=== PATIENT | male | born 1940 | race Caucasian/White ===

== ENCOUNTER 2023-06-18 08:46 | Inpatient (IN) | payer MEDICARE ==
[2023-06-18] MEDS ORDERED: SODIUM CHLORIDE 0.9% 500 ML 500 ML IV ONE (08:57)
--- NOTE | 2023-06-18 09:01 | ED ---
GI Bleed HPI - General Stated complaint: Seizure Time Seen by Provider: 06/18/23 08:55 Source: patient, family, RN notes reviewed, old records reviewed - History of Present Illness Initial comments: This is an 83-year-old male who presents emergency Department for new onset seizure. Patient's gives all the history. Patient's states she woke up to the her shaking and grimacing and groaning and it lasted for about 2 minutes she states it look like a seizure to her. Patient states after that he was in coherent for about 5 minutes and he slowly came around. Currently she states she is at his baseline. She also stated that he bit his tongue and there was blood coming out of his mouth. Patient currently states he just feels tired but other night he has no complaints. Patient does not have a seizure history. Patient does not use any illegal drugs or drink. Patient has not had any recent injury or trauma. Patient is not on any blood thinners. - Related Data Allergies Allergy/AdvReac Type Severity Reaction Status Date / Time No Known Allergies Allergy Verified 06/18/23 09:00 Review of Systems ROS Statement: Those systems with pertinent positive or pertinent negative responses have been documented in the HPI. ROS Other: All systems not noted in ROS Statement are negative. General Exam - General Exam Comments Initial Comments: GENERAL: Patient is well-developed and well-nourished. Patient is nontoxic and well- hydrated and is in mild distress. ENT: Neck is soft and supple. No significant lymphadenopathy is noted. Oropharynx is clear. Moist mucous membranes. Neck has full range of motion without e liciting any pain. Tongue has some abrasions on the right side and at the tip of the tongue no obvious laceration EYES: The sclera were anicteric and conjunctiva were pink and moist. Extraocular mo vements were intact and pupils were equal round and reactive to light. Eyelids were unremarkable. PULMONARY: Unlabored respirations. Good breath sounds bilaterally. No audible rales rhonchi or wheezing was noted. CARDIOVASCULAR: There is a regular rate and rhythm without any murmurs gallops or rubs. ABDOMEN: Soft and nontender with normal bowel sounds. SKIN: Skin is clear with no lesions or rashes and otherwise unremarkable. NEUROLOGIC: Patient is alert and oriented x3. Cranial nerves II through XII are grossly intact. Motor and sensory are also intact. Normal speech, volume and content. Symmetrical smile. MUSCULOSKELETAL: Normal extremities with adequate strength and full range of motion. LYMPHATICS: No significant lymphadenopathy is noted PSYCHIATRIC: Normal psychiatric evaluation. Course Vital Signs 06/18/23 06/18/23 06/18/23 08:53 09:00 10:25 Temperature 98.7 F Pulse Rate 90 84 120 H Respiratory 18 18 28 H Rate Blood Pressure 158/116 167/84 222/108 O2 Sat by Pulse 95 97 91 L Oximetry 06/18/23 06/18/23 10:30 11:11 Temperature Pulse Rate 112 H 106 H Respiratory 20 Rate Blood Pressure 198/92 146/78 O2 Sat by Pulse 98 97 Oximetry Medical Decision Making - Medical Decision Making EKG shows a sinus rhythm at 92 bpm SD interval is 212 QRS is 129 QT interval 33 QTC is 433. Patient's EKG shows no ST segment elevation or depression. Was pt. sent in by a medical professional or institution (, PA, AIRCRAFT ELECT[employer]ICAL SYSTEMS SPECIALIST, urgent care, hospital, or group home...) When possible be specific @ -No Did you speak to anyone other than the patient for history (EMS, parent, family, police, friend...)? What history was obtained from this source @ -EMS gave us most of the history Did you review nursing and triage notes (agree or disagree)? Why? @ -I reviewed and agree with nursing and triage notes Were old charts reviewed (outside hosp., previous admission, EMS record, old EKG, old radiological studies, urgent care reports/EKG's, group home records)? Report findings @ -I reviewed old charts and old lab work on this patient Differential Diagnosis (chest pain, altered mental status, abdominal pain women, abdominal pain men, vaginal bleeding, weakness, fever, dyspnea, syncope, headache, dizziness, GI bleed, back pain, seizure, CVA, palpatations, mental health, musculoskeletal)? @ -Differential Seizure: Recurrent seizure disorder, febrile seizure, alcohol withdrawal, stimulants, meningitis, encephalitis, intercranial hemorrhage, intracranial tumor, stroke, eclampsia, thyrotoxicosis, hypocalcemia, hyponatremia, hypernatremia, hypomagnesemia, psychogenic, this is not meant to be an all-inclusive list. EKG interpreted by me (3pts min.). @ -As above X-rays interpreted by me (1pt min.). @ -Chest x-ray showed no acute abnormality CT interpreted by me (1pt min.). 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 min.). @ -None done What testing was considered but not performed or refused? (CT, X-rays, U/S, labs)? Why? @ -None What meds were considered but not given or refused? Why? @ -None Did you discuss the management of the patient with other professionals (professionals i.e. , PA, AIRCRAFT [employer] SPECIALIST, lab, RT, psych nurse, dialysis social worker, jumpbasting facing baster, teacher, correction officer city or county jail, major case detective)? Give summary @ -I spoke with the patient [facility] say agreed to admit the patient admitted the patient. I also spoke with Dr. Dey and he agreed to see the patient. Was smoking cessation discussed for >3mins.? @ -No Was critical care preformed (if so, how long)? @ -No Were there social determinants of health that impacted care today? How? (Homelessness, low income, unemployed, alcoholism, drug addiction, transportat ion, low edu. Level, literacy, decrease access to med. care, longterm, rehab)? @ -No Was there de-escalation of care discussed even if they declined (Discuss DNR or withdrawal of care, Hospice)? DNR status @ -No What co-morbidities impacted this encounter? (DM, HTN, Smoking, COPD, CAD, Cancer, CVA, ARF, Chemo, Hep., AIDS, mental health diagnosis, sleep apnea, morbid obesity)? @ -None Was patient admitted / discharged? Hospital course, mention meds given and route, prescriptions, significant lab abnormalities, going to OR and other pertinent info. @ -Lab work showed no acute abnormality. Patient had a second seizure emergency department he did receive 1 mg of Ativan. Patient's CAT scan showed no acute abnormality she was a remote basal ganglia lacunar infarct. I spoke with the surgeon hospice will accept the admission and consulted Dr. Panda spoke with him and he will see the patient. Undiagnosed new problem with uncertain prognosis? @ -No Drug Therapy requiring intensive monitoring for toxicity (Heparin, Nitro, Insulin, Cardizem)? @ -No Were any procedures done? @ -No Diagnosis/symptom? @ -New onset seizure Acute, or Chronic, or Acute on Chronic? @ -Acute Uncomplicated (without systemic symptoms) or Complicated (systemic symptoms)? @ -Complicated Side effects of treatment? @ -No Exacerbation, Progression, or Severe Exacerbation? @ -No Poses a threat to life or bodily function? How? (Chest pain, USA, CT, pneumonia, PE, COPD, DKA, ARF, appy, cholecystitis, CVA, Diverticulitis, Homicidal, Suicidal, threat to staff... and all critical care pts) @ -No - Lab Data Result diagrams: 06/18/23 09:08 06/18/23 09:08 Lab Results 06/18/23 06/18/23 06/18/23 Range/Units 09:08 09:08 09:08 WBC 6.6 (3.8-10.6) k/uL RBC 4.55 (4.30-5.90) m/uL Hgb 13.5 (13.0-17.5) gm/dL Hct 40.7 (39.0-53.0) % MCV 89.6 (80.0-100.0) fL MCH 29.6 (25.0-35.0) pg MCHC 33.1 (31.0-37.0) g/dL RDW 13.7 (11.5-15.5) % Plt Count 132 L (150-450) k/uL MPV 8.9 Neutrophils % 80 % Lymphocytes % 8 % Monocytes % 6 % Eosinophils % 6 % Basophils % 0 % Neutrophils # 5.3 (1.3-7.7) k/uL Lymphocytes # 0.5 L (1.0-4.8) k/uL Monocytes # 0.4 (0-1.0) k/uL Eosinophils # 0.4 (0-0.7) k/uL Basophils # 0.0 (0-0.2) k/uL PT 11.2 (9.0-12.0) sec INR 1.1 (<1.2) APTT 21.9 L (22.0-30.0) sec Sodium 138 (137-145) mmol/L Potassium 4.2 (3.5-5.1) mmol/L Chloride 105 (98-107) mmol/L Carbon Dioxide 24 (22-30) mmol/L Anion Gap 9 mmol/L BUN 48 H (9-20) mg/dL Creatinine 1.93 H (0.66-1.25) mg/dL Est GFR (CKD-EPI)AfAm 36 (>60 ml/min/1.73 sqM) Est GFR (CKD-EPI)NonAf 31 (>60 ml/min/1.73 sqM) Glucose 218 H (74-99) mg/dL POC Glucose (mg/dL) (70-110) mg/dL POC Glu Ski Top Trimmer ID Calcium 9.0 (8.4-10.2) mg/dL Total Bilirubin 0.4 (0.2-1.3) mg/dL AST 24 (17-59) U/L ALT 16 (4-49) U/L Alkaline Phosphatase 57 (38-126) U/L Troponin I (0.000-0.034) ng/mL Total Protein 6.7 (6.3-8.2) g/dL Albumin 4.2 (3.5-5.0) g/dL 06/18/23 06/18/23 Range/Units 09:08 10:37 WBC (3.8-10.6) k/uL RBC (4.30-5.90) m/uL Hgb (13.0-17.5) gm/dL Hct (39.0-53.0) % MCV (80.0-100.0) fL MCH (25.0-35.0) pg MCHC (31.0-37.0) g/dL RDW (11.5-15.5) % Plt Count (150-450) k/uL MPV Neutrophils % % Lymphocytes % % Monocytes % % Eosinophils % % Basophils % % Neutrophils # (1.3-7.7) k/uL Lymphocytes # (1.0-4.8) k/uL Monocytes # (0-1.0) k/uL Eosinophils # (0-0.7) k/uL Basophils # (0-0.2) k/uL PT (9.0-12.0) sec INR (<1.2) APTT (22.0-30.0) sec Sodium (137-145) mmol/L Potassium (3.5-5.1) mmol/L Chloride (98-107) mmol/L Carbon Dioxide (22-30) mmol/L Anion Gap mmol/L BUN (9-20) mg/dL Creatinine (0.66-1.25) mg/dL Est GFR (CKD-EPI)AfAm (>60 ml/min/1.73 sqM) Est GFR (CKD-EPI)NonAf (>60 ml/min/1.73 sqM) Glucose (74-99) mg/dL POC Glucose (mg/dL) 204 H (70-110) mg/dL POC Glu Ski Top Trimmer ID Desiree Brooks Calcium (8.4-10.2) mg/dL Total Bilirubin (0.2-1.3) mg/dL AST (17-59) U/L ALT (4-49) U/L Alkaline Phosphatase (38-126) U/L Troponin I <0.012 (0.000-0.034) ng/mL Total Protein (6.3-8.2) g/dL Albumin (3.5-5.0) g/dL Disposition Clinical Impression: New onset seizure Disposition: ADMITTED IP TO THIS [facility] Instructions (If sedation given, give patient instructions): Seizure/Epilepsy Discharge Instructions & Follow-Up Referrals: Nonstaff,Physician [REFERRING] - 1-2 days Time of Disposition: 12:16
[2023-06-18 09:30] LABS: Basophils % (A) 0 %; Eosinophils # (A) 0.4 k/uL (0-0.7); Eosinophils % (A) 6 %; HCT 40.7 % (39.0-53.0); HGB 13.5 gm/dL (13.0-17.5); Lymphocytes # (A) 0.5 k/uL (1.0-4.8); Lymphocytes % (A) 8 %; MCH 29.6 pg (25.0-35.0); MCHC 33.1 g/dL (31.0-37.0); MCV 89.6 fL (80.0-100.0); Mean Platelet Volume 8.9; Monocytes # (A) 0.4 k/uL (0-1.0); Monocytes % (A) 6 %; Neutrophils # (A) 5.3 k/uL (1.3-7.7); Neutrophils % (A) 80 %; Platelet Count 132 k/uL (150-450); RBC 4.55 m/uL (4.30-5.90); RDW 13.7 % (11.5-15.5); WBC 6.6 k/uL (3.8-10.6)
--- NOTE | 2023-06-18 09:34 | CT ---
EXAMINATION TYPE: CT brain wo con CT DLP: 1159.3 mGycm, Automated exposure control for dose reduction was used. DATE OF EXAM: 06/18/2023 9:27 AM COMPARISON: None. CLINICAL INDICATION:Male, 83 years old with history of Altered mental status, AMS TECHNIQUE: Brain: Multiple axial CT images of the brain were obtained without IV contrast. Coronal and sagittal reformats reviewed. FINDINGS: Brain: Extra-axial spaces: No abnormal extra-axial fluid collections. Ventricular system: Within normal limits Cerebral parenchyma: Cerebral atrophy. No acute intraparenchymal hemorrhage or mass effect. The roblero -white junction is well differentiated. Remote appearing left basal ganglia lacunar injury. Scattered hypoattenuating areas are seen within the periventricular and subcortical white matter. Cerebellum: Unremarkable. Mass effect: No evidence of midline shift. Intracranial vasculature: Atherosclerotic calcifications of the intracranial vessels. Soft tissues: Normal. Calvarium/osseous structures: No depressed skull fracture. Paranasal sinuses and mastoid air cells: Mild scattered paranasal sinus disease. Visualized orbits: Bilateral aphakia. Bilateral scleral calcifications. IMPRESSION: 1. No acute intracranial process. 2. 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
--- NOTE | 2023-06-18 09:40 | XR ---
EXAMINATION TYPE: XR chest 2V DATE OF EXAM: 06/18/2023 9:36 AM COMPARISON: None TECHNIQUE: XR chest 2V Frontal and lateral views of the chest. CLINICAL INDICATION:Male, 83 years old with history of altered mental status; FINDINGS: Patient is rotated which limits evaluation. Lungs/Pleura: There is no evidence of pleural effusion, focal consolidation, or pneumothorax. Mild i nterstitial prominence. Heart/mediastinum: Cardiomediastinal silhouette is unremarkable. Atherosclerotic calcifications are seen in the aorta. Musculoskeletal: Multiple level degenerative disc disease changes seen throughout the spine. Bilatera l shoulder arthropathy. IMPRESSION: Mild interstitial prominence. This could reflect chronic parenchyma changes versus pulmonary vascular congestion.
[2023-06-18 09:45] LABS: ALT 16 U/L (4-49); AST 24 U/L (17-59); African American GFR (CKD) 36 (>60 ml/min/1.73 sqM); Albumin 4.2 g/dL (3.5-5.0); Alkaline Phosphatase 57 U/L (38-126); Anion Gap 9 mmol/L; Blood Urea Nitrogen 48 mg/dL (9-20); Carbon Dioxide 24 mmol/L (22-30); Chloride 105 mmol/L (98-107); Glucose 218 mg/dL (74-99); Non-African American GFR(CKD) 31 (>60 ml/min/1.73 sqM); Potassium 4.2 mmol/L (3.5-5.1); Sodium 138 mmol/L (137-145); Total Bilirubin 0.4 mg/dL (0.2-1.3); Total Protein 6.7 g/dL (6.3-8.2)
[2023-06-18 09:48] LABS: INR 1.1 (<1.2); Partial Thromboplastin Time 21.9 sec (22.0-30.0); Prothrombin Time 11.2 sec (9.0-12.0)
[2023-06-18] MEDS ORDERED: LORazepam 2 MG/ML INJ IV STA (10:26)
[2023-06-18] MEDS ORDERED: Acetaminophen-Codeine 300-30mg TAB PO PRN (10:37)
[2023-06-18] MEDS ORDERED: LORazepam 2 MG/ML INJ IV PRN (10:37)
[2023-06-18] MEDS ORDERED: ONDANSETRON 4 MG/2 ML VIAL IVP PRN (10:37)
[2023-06-18] MEDS ORDERED: ACETAMINOPHEN TAB 325 MG TAB PO PRN (10:37)
[2023-06-18] MEDS ORDERED: NALOXONE 0.4 MG/ML 1 ML VIAL IV PRN (10:37)
[2023-06-18 10:40] LABS: Glucose,Whole Blood 204 mg/dL (70-110)
[2023-06-18] MEDS ORDERED: ALPRAZolam 0.25 MG TAB PO PRN (15:35)
--- NOTE | 2023-06-18 15:44 | P.HPIM ---
History of Present Illness H&P Date: 06/18/23 * 83-year-old gentleman with past medical history significant for diabetes mellitus, presented to the emergency department with new onset seizure * Patient was in usual state of health when he was noted to have abnormal jerky movement of his body earlier today. Patient was brought to the emergency if we added another episode of seizure. Patient does not have any previous history of seizure * CT head obtained in ER showed remote left basal ganglion lacunar injury. No acute intracranial process was noted * Workup initiated in ER included a CBC which was essentially normal except for platelet count of 132. Serum chemistry showed sodium of 138 potassium of 4.2 BUN of 40 1.93 Glucose of 218 * Patient was evaluated and room 472 with family at bedside she continues to remain disoriented REVIEW OF SYSTEMS: Unable to obtain history secondary to PHYSICAL EXAMINATION: GENERAL: The patient is alert and oriented x 1, HEENT: Pupils are round and equally reacting to light. EOMI. CARDIOVASCULAR: S1 and S2 present. PULMONARY: Chest is clear to auscultation, no wheezing or crackles. ABDOMEN: Soft, nontender, nondistended, normoactive bowel sounds. No palpable organomegaly. MUSCULOSKELETAL: No joint swelling or deformity. EXTREMITIES: No cyanosis, clubbing, or pedal edema. NEUROLOGICAL: Exam limited secondary to mentation, patient moving both upper and lower extremities no facial droop noted . Past Medical History Past Medical History: Cancer, Diabetes Mellitus, Hypertension History of Any Multi-Drug Resistant Organisms: None Reported Past Surgical History: Prostate Surgery Past Psychological History: No Psychological Hx Reported Smoking Status: Former smoker Past Alcohol Use History: None Reported Past Drug Use History: None Reported - Past Family History Father Family Medical History: No Reported History Medications and Allergies Home Medications Medication Instructions Recorded Confirmed Type ALPRAZolam [Xanax] 0.25 mg PO DAILY PRN 06/18/23 06/18/23 History Amlodipine Besylate/Valsartan 1 tab PO DAILY 06/18/23 06/18/23 History [Amlodipine-Valsartan 10-320 mg] Atorvastatin Calcium [Lipitor] 40 mg PO HS 06/18/23 06/18/23 History Chlorthalidone 12.5 mg PO DAILY 06/18/23 06/18/23 History Fenofibrate Nanocrystallized 145 mg PO DAILY 06/18/23 06/18/23 History [Tricor] Isosorbide Mononitrate ER [Imdur] 30 mg PO DAILY 06/18/23 06/18/23 History Levothyroxine Sodium [Synthroid] 125 mcg PO DAILY 06/18/23 06/18/23 History Pantoprazole Sodium [Protonix] 20 mg PO DAILY 06/18/23 06/18/23 History Sertraline [Zoloft] 200 mg PO DAILY 06/18/23 06/18/23 History metFORMIN HCL [Glucophage] 500 mg PO DAILY 06/18/23 06/18/23 History Allergies Allergy/AdvReac Type Severity Reaction Status Date / Time No Known Allergies Allergy Verified 06/18/23 13:58 Physical Exam Vitals: Vital Signs Temp Pulse Pulse Resp BP BP Pulse Ox 06/18/23 13:40 98.0 F 93 18 166/82 95 06/18/23 13:00 79 24 149/85 97 06/18/23 11:11 106 H 20 146/78 97 06/18/23 10:30 112 H 198/92 98 06/18/23 10:25 120 H 28 H 222/108 91 L 06/18/23 09:00 84 18 167/84 97 06/18/23 08:53 98.7 F 90 18 158/116 95 Intake and Output 06/18/23 06/18/23 06/18/23 06:59 14:59 22:59 Other: Weight 70.307 kg Results CBC & Chem 7: 06/18/23 09:08 06/18/23 09:08 Labs: Abnormal Lab Results - Last 24 Hours (Table) 06/18/23 06/18/23 06/18/23 Range/Units 09:08 09:08 09:08 Plt Count 132 L (150-450) k/uL Lymphocytes # 0.5 L (1.0-4.8) k/uL APTT 21.9 L (22.0-30.0) sec BUN 48 H (9-20) mg/dL Creatinine 1.93 H (0.66-1.25) mg/dL Glucose 218 H (74-99) mg/dL POC Glucose (mg/dL) (70-110) mg/dL 06/18/23 Range/Units 10:37 Plt Count (150-450) k/uL Lymphocytes # (1.0-4.8) k/uL APTT (22.0-30.0) sec BUN (9-20) mg/dL Creatinine (0.66-1.25) mg/dL Glucose (74-99) mg/dL POC Glucose (mg/dL) 204 H (70-110) mg/dL Thrombosis Risk Factor Assmnt - Choose All That Apply Other Risk Factors: Yes Each Risk Factor Represents 3 Points: Age 75 years or older Thrombosis Risk Factor Assessment Total Risk Factor Score: 3 Thrombosis Risk Factor Assessment Level: Moderate Risk Assessment and Plan Assessment: Assessment and plan * New onset seizure * Diabetes mellitus type 2 * Hypertension * Dyslipidemia * History of depression * Consult obtained from neurology, CT head negative for acute intracranial process. Continue every 4 hours neuro check * As needed Ativan ordered for seizure * In regards to diabetes mellitus continue Accu-Cheks, correctional insulin ordered hold metformin * In regards to history of hypothyroidism continue Synthroid follow-up on TSH * Regards to history of depression continue patient on Synthyroid * Post status is full code
[2023-06-18 16:32] LABS: Glucose,Whole Blood 123 mg/dL (70-110)
[2023-06-18] MEDS: INSULIN ASPART (NovoLOG) 100 UNIT/ML VIAL SQ SCH ×2 (16:32→22:32)
[2023-06-18] MEDS ORDERED: levETIRAcetam IV 500 MG/5 ML VIAL IVP STA (18:06)
[2023-06-18] MEDS: ISOSORBIDE MONONITRATE ER 30 MG TAB.ER.24H PO SCH (18:28)
--- NOTE | 2023-06-18 19:21 | P.CNNES ---
History of Present Illness Consult date: 06/18/23 Requesting physician: Joya Christie Reason for Consult: New onset seizure History of Present Illness: Patient is a 83-year-old right-handed male, otherwise healthy, was brought to the hospital by ambulance at 8:46 AM for new onset seizure. Patient's was also present, who provided with a history. Patient apparently went to sleep last night in usual state of health. At 7:15 AM patient's woke up because patient was making some noises. She then witnessed grand mal seizure in which he bit his tongue, and lost control of urine. She called 911 and patient was brought to the hospital. Patient's mentions that he was postictal for about an hour after the seizure. While in the ER at 10:20 AM he had another seizure, again in which he bit his tongue and lost control of urine. He was "incoherent" for about 3-4 hours after this second seizure. He is now slightly getting better. Patient never had any history of seizure. He is otherwise healthy, see his primary physician regularly, last time seen 2 weeks ago. He has no history of dementia, does not use any assistive device, except sometimes uses cane been going for long distances. No falls. Patient denies any history of concussions, childhood seizures, or any family history of epilepsy. No previous history of meningitis encephalitis. Vital signs on arrival blood pressure 158/116, pulse rate 90, temperature 98.7. His blood pressure did go up to 222/108, perhaps during the seizure. Blood tests showed normal Chem-7, PT/PTT, normal electrolytes, BUN 48, creatinine 1.93, hepatic panel is normal, troponin normal, ammonia is normal 19. Urine drug screen positive for benzodiazepine and marijuana. CT head showed no acute intracranial process. Remote left basal ganglia lacune or injury along with nonspecific white matter changes, likely secondary to chronic microangiopathy. I personally reviewed CT head, do not find any significant basal ganglionic remote injury. No acute process. Chest x-ray showed mild interstitial promine nce. This could reflect chronic parenchyma changes versus pulmonary vascular congestion. EMS flow sheet not available in the chart. Patient at present is improved, but frequently gets agitated, and wants to go climb out of the bed, wants to go to the bathroom or wants to go home. Patient's believes that he is still slightly confused and has to be frequently reoriented. Patient was complaining of headache in the ER but not anymore. Patient denies any history of tobacco or alcohol use. Patient does use marijuana gummies, or smokes marijuana. Denies any using new brand, gets it from medical marijuana. He was diagnosed with diabetes 6 months ago with A1c 7.1. Started on metformin. He has hypertension and hyperlipidemia both of which are controlled. Patient does take Xanax 0.25 mg, but very sporadically, only about twice a month. He does not take it regularly. Review of Systems Constitutional: Denies chills, Denies fever Eyes: denies blurred vision, denies discharge, denies pain Ears: right: earache, bilateral: decreased hearing, deny: tinnitus Ears, nose, mouth and throat: Denies headache, Denies sore throat Cardiovascular: Denies chest pain, Denies shortness of breath Respiratory: Reports cough, Reports excessive sputum Gastrointestinal: Reports abdominal pain (This am), Reports vomiting (ER), Denies diarrhea, Denies nausea Musculoskeletal: Denies low back pain, Denies myalgias, Denies neck pain Integumentary: Denies pruritus, Denies rash Neurological: Reports as per HPI Psychiatric: Denies anxiety, Denies depression, Denies memory loss Endocrine: Denies fatigue, Denies weight change Hematologic/Lymphatic: Reports easy bruising, Denies easy bleeding Past Medical History Past Medical History: Cancer, Diabetes Mellitus, Hypertension History of Any Multi-Drug Resistant Organisms: None Reported Past Surgical History: Prostate Surgery Past Psychological History: No Psychological Hx Reported Smoking Status: Former smoker Past Alcohol Use History: None Reported Past Drug Use History: None Reported - Past Family History Father Family Medical History: No Reported History Medications and Allergies Home Medications Medication Instructions Recorded Confirmed Type ALPRAZolam [Xanax] 0.25 mg PO DAILY PRN 06/18/23 06/18/23 History Amlodipine Besylate/Valsartan 1 tab PO DAILY 06/18/23 06/18/23 History [Amlodipine-Valsartan 10-320 mg] Atorvastatin Calcium [Lipitor] 40 mg PO HS 06/18/23 06/18/23 History Chlorthalidone 12.5 mg PO DAILY 06/18/23 06/18/23 History Fenofibrate Nanocrystallized 145 mg PO DAILY 06/18/23 06/18/23 History [Tricor] Isosorbide Mononitrate ER [Imdur] 30 mg PO DAILY 06/18/23 06/18/23 History Levothyroxine Sodium [Synthroid] 125 mcg PO DAILY 06/18/23 06/18/23 History Pantoprazole Sodium [Protonix] 20 mg PO DAILY 06/18/23 06/18/23 History Sertraline [Zoloft] 200 mg PO DAILY 06/18/23 06/18/23 History metFORMIN HCL [Glucophage] 500 mg PO DAILY 06/18/23 06/18/23 History levETIRAcetam [Keppra] 750 mg PO Q12HR 30 Days #180 tab 06/21/23 Rx Allergies Allergy/AdvReac Type Severity Reaction Status Date / Time No Known Allergies Allergy Verified 06/18/23 13:58 Physical Examination - Vital Signs Vital Signs: Vital Signs Temp Pulse Pulse Resp BP BP Pulse Ox 06/18/23 13:40 98.0 F 93 18 166/82 95 06/18/23 13:00 79 24 149/85 97 06/18/23 11:11 106 H 20 146/78 97 06/18/23 10:30 112 H 198/92 98 06/18/23 10:25 120 H 28 H 222/108 91 L 06/18/23 09:00 84 18 167/84 97 06/18/23 08:53 98.7 F 90 18 158/116 95 Intake and Output 06/18/23 06/18/23 06/18/23 06:59 14:59 22:59 Other: # Voids 1 Weight 70.307 kg Patient is an elderly male, who appears somewhat encephalopathic, but is getting better. Patient is slightly encephalopathic, but then becomes alert awake oriented to time place and person. He knows it is May and the year is 23 and that he is in the hospital in [facility]. He he knows that he lives in [facility] and name of the current president. Speech and language functions are normal. Patient can name and repeat very well. No aphasia, but patient has slurring because of significant tongue bite bilaterally. Attention, concentration is slightly impaired and fund of knowledge is adequate. On cranial nerve examination, pupils are equal, round and reacting to light, visual hudson are full on confrontation, with no neglect on double simultaneous stimulation. Extraocular muscles are intact with no nystagmus. Face is symmetric, tongue protrudes to the midline. Palatal elevation and sensation normal, hearing is mild to moderately decreased and shoulder shrug normal, facial sensation normal. Patient has evidence of significant tongue bite abhinav bilaterally. On muscle strength testing, there is no pronator drift and the strength is normal in arms and legs distally and proximally. Deep tendon reflexes are (right/left) biceps 2/1, brachioradialis trace/trace, knees 0/0, ankles 0/0, and plantars are flat bilaterally. Sensory to touch is equal with no neglect on double simultaneous stimulation. Cerebellar function showed no ataxia for [id number] testing. No dysdiadochokinesia. Tone and bulk of muscles normal. Gait deferred.. On general examination, there is no carotid bruit or murmur, S1-S2 audible. Chest is clear on consultation. Abdomen is soft nontender. No organomegaly, bowel sounds present. Peripheral pulses are present. No edema. Results - Laboratory Findings CBC and BMP: 06/21/23 07:16 06/21/23 07:16 Abnormal Lab Findings: Abnormal Labs 06/18/23 06/18/23 06/18/23 09:08 09:08 09:08 Plt Count 132 L Lymphocytes # 0.5 L APTT 21.9 L BUN 48 H Creatinine 1.93 H Glucose 218 H POC Glucose (mg/dL) 06/18/23 06/18/23 10:37 16:31 Plt Count Lymphocytes # APTT BUN Creatinine Glucose POC Glucose (mg/dL) 204 H 123 H Assessment and Plan Assessment: * New onset grand mal seizure 2 (prior to arrival to the ER, and once in the ER), unclear etiology. No obvious provoking factor identified. Patient does not take any medications that could provoke seizure. Patient does have prescription of Xanax 0.25 mg, but he takes it no more than twice a month. No evidence of benzodiazepine withdrawal. * Hypertension * Diabetes * Marijuana use Plan: * Patient has presented with new onset seizure of unclear etiology. Although the oral temperature recorded was normal, but when checked axillary, was 100.0. Need to rule out encephalitis. * Patient will be started on Keppra 1000 mg stat loading dose, followed by Kepp ra 750 mg IV twice a day. * Stat EEG * Stat MRI of the brain with and without contrast. * Patient may need lumbar puncture to rule out encephalitis. * We will empirically start acyclovir 10 mg/kg every 8 hours, (to be adjusted for patient's renal functions as per pharmacist). * Urine drug screen * Patient informed of [place] state law of no driving unless seizure free for 6 months, climbing ladders, operating dangerous machinery or unsupervised swimming. * Discussed with patient's family in detail. * Neurology will follow clinically. Thank you for the consult. Time with Patient: Greater than 30
[2023-06-18 21:09] LABS: Glucose,Whole Blood 106 mg/dL (70-110)
[2023-06-18] MEDS: ATORVASTATIN 40 MG TAB PO SCH (21:11)
[2023-06-18] MEDS: ACYCLOVIR SODIUM 700 MG in SODIUM CHLORIDE 0.9% 100 ML IVPB SCH (21:11)
[2023-06-18] MEDS: levETIRAcetam IV 500 MG/5 ML VIAL IVP SCH (21:11)
[2023-06-18] MEDS: LORazepam 2 MG/ML INJ IV PRN (21:51)
[2023-06-18 23:49] LABS: Amphetamine Screen,Urine Not Detected (NotDetected); Barbiturate Screen,Urine Not Detected (NotDetected); Benzodiazepines Screen,Urine Detected (NotDetected); Cocaine Screen,Urine Not Detected (NotDetected); Methadone Screen, Urine Not Detected (NotDetected); Opiate Screen,Urine Not Detected (NotDetected); Oxycodone Screen, Urine Not Detected (NotDetected); Phencyclidine Screen,Urine Not Detected (NotDetected); Tricyclic Antidepressant,Urine Not Detected (NotDetected); Urn Cannabinoid Scrn Detected (NotDetected)
[2023-06-19 06:01] LABS: Glucose,Whole Blood 120 mg/dL (70-110)
[2023-06-19] MEDS: INSULIN ASPART (NovoLOG) 100 UNIT/ML VIAL SQ SCH ×4 (06:12→21:36)
[2023-06-19 08:16] LABS: African American GFR (CKD) 41 (>60 ml/min/1.73 sqM); Anion Gap 6 mmol/L; Blood Urea Nitrogen 34 mg/dL (9-20); Calcium 9.1 mg/dL (8.4-10.2); Carbon Dioxide 25 mmol/L (22-30); Chloride 105 mmol/L (98-107); Glucose 124 mg/dL (74-99); Non-African American GFR(CKD) 35 (>60 ml/min/1.73 sqM); Potassium 4.1 mmol/L (3.5-5.1); Sodium 136 mmol/L (137-145)
[2023-06-19 08:31] LABS: Basophils % (A) 0 %; Eosinophils # (A) 0.4 k/uL (0-0.7); Eosinophils % (A) 4 %; HCT 40.3 % (39.0-53.0); HGB 13.4 gm/dL (13.0-17.5); Lymphocytes # (A) 0.8 k/uL (1.0-4.8); Lymphocytes % (A) 8 %; MCH 29.6 pg (25.0-35.0); MCHC 33.2 g/dL (31.0-37.0); MCV 89.1 fL (80.0-100.0); Monocytes # (A) 0.8 k/uL (0-1.0); Monocytes % (A) 8 %; Neutrophils # (A) 8.1 k/uL (1.3-7.7); Neutrophils % (A) 80 %; Platelet Count 162 k/uL (150-450); RBC 4.53 m/uL (4.30-5.90); RDW 13.9 % (11.5-15.5); WBC 10.1 k/uL (3.8-10.6)
[2023-06-19] MEDS: ACYCLOVIR SODIUM 700 MG in SODIUM CHLORIDE 0.9% 100 ML IVPB SCH ×2 (08:35→20:08)
[2023-06-19] MEDS: levETIRAcetam IV 500 MG/5 ML VIAL IVP SCH ×2 (08:35→20:08)
[2023-06-19] MEDS: amLODIPine 10 MG TAB PO SCH (08:36)
[2023-06-19] MEDS: FENOFIBRATE 54 MG TAB PO SCH (08:36)
[2023-06-19] MEDS: PANTOPRAZOLE 40 MG TABLET PO SCH (08:36)
[2023-06-19] MEDS: VALSARTAN 160 MG TAB PO SCH (08:36)
[2023-06-19] MEDS: LEVOTHYROXINE 125 MCG TAB PO SCH (08:36)
[2023-06-19] MEDS: SERTRALINE 100 MG TAB PO SCH (08:36)
[2023-06-19] MEDS: ISOSORBIDE MONONITRATE ER 30 MG TAB.ER.24H PO SCH (08:36)
[2023-06-19] MEDS ORDERED: LIDOCAINE 1% INJ 10MG/ML (20 ML MDV) SQ ONE (10:13)
[2023-06-19 11:42] LABS: Glucose,Whole Blood 164 mg/dL (70-110)
--- NOTE | 2023-06-19 12:59 | P.PN ---
Subjective Progress Note Date: 06/19/23 * 83-year-old gentleman with past medical history significant for diabetes mellitus, presented to the emergency department with new onset seizure * Patient was in usual state of health when he was noted to have abnormal jerky movement of his body earlier today. Patient was brought to the emergency if we added another episode of seizure. Patient does not have any previous history of seizure * CT head obtained in ER showed remote left basal ganglion lacunar injury. No acute intracranial process was noted * Workup initiated in ER included a CBC which was essentially normal except for platelet count of 132. Serum chemistry showed sodium of 138 potassium of 4.2 BUN of 40 1.93 Glucose of 218 * Consultation obtained from neurology 06/19/2023 : Patient seen and evaluated bedside. Patient accompanied with and son. At this time patient is alert and oriented 3. Mentation has improved significantly. Appreciate neurology input. MRI brain pending Objective - Vital Signs Vital signs: Vital Signs Temp 98.4 F 06/19/23 07:49 Pulse 66 06/19/23 07:49 Resp 19 06/19/23 07:49 BP 135/67 06/19/23 07:49 Pulse Ox 98 06/19/23 07:49 FiO2 Intake & Output 06/18/23 06/19/23 06/19/23 18:59 06:59 18:59 Intake Total 340 Balance 340 Weight 70.307 kg Intake: Intake, IV Titration 100 Amount Acyclovir Sodium 700 mg 100 In Sodium Chloride 0.9% 100 ml @ 100 mls/hr IVPB Q12HR [facility] Rx#:[id number] Oral 240 Other: Voiding Method Urinal Urinal # Voids 1 2 - Exam PHYSICAL EXAMINATION: GENERAL: The patient is alert and oriented x3, not in any acute distress. Well developed, well nourished. HEENT: Pupils are round and equally reacting to light. EOMI. No scleral icterus. No conjunctival pallor. Normocephalic, atraumatic. No pharyngeal erythema. No thyromegaly. CARDIOVASCULAR: S1 and S2 present. No murmurs, rubs, or gallops. PULMONARY: Chest is clear to auscultation, no wheezing or crackles. ABDOMEN: Soft, nontender, nondistended, normoactive bowel sounds. No palpable organomegaly. MUSCULOSKELETAL: No joint swelling or deformity. EXTREMITIES: No cyanosis, clubbing, or pedal edema. NEUROLOGICAL: Gross neurological examination did not reveal any focal deficits. SKIN: No rashes. - Labs CBC & Chem 7: 06/19/23 07:02 06/19/23 07:02 Labs: Abnormal Lab Results - Last 24 Hours (Table) 06/18/23 06/18/23 06/19/23 Range/Units 16:31 21:30 05:59 Neutrophils # (1.3-7.7) k/uL Lymphocytes # (1.0-4.8) k/uL Sodium (137-145) mmol/L BUN (9-20) mg/dL Creatinine (0.66-1.25) mg/dL Glucose (74-99) mg/dL POC Glucose (mg/dL) 123 H 120 H (70-110) mg/dL U Benzodiazepines Scrn Detected H (NotDetected) U Marijuana (THC) Screen Detected H (NotDetected) 06/19/23 06/19/23 06/19/23 Range/Units 07:02 07:02 11:41 Neutrophils # 8.1 H (1.3-7.7) k/uL Lymphocytes # 0.8 L (1.0-4.8) k/uL Sodium 136 L (137-145) mmol/L BUN 34 H (9-20) mg/dL Creatinine 1.75 H (0.66-1.25) mg/dL Glucose 124 H (74-99) mg/dL POC Glucose (mg/dL) 164 H (70-110) mg/dL U Benzodiazepines Scrn (NotDetected) U Marijuana (THC) Screen (NotDetected) Assessment and Plan Assessment: Assessment and plan * New onset seizure * Diabetes mellitus type 2 * Hypertension * Dyslipidemia * History of depression * Consult obtained from neurology, CT head negative for acute intracranial process. Continue every 4 hours neuro check * As needed Ativan ordered for seizure, MRI brain ordered, EKG ordered * In regards to diabetes mellitus continue Accu-Cheks, correctional insulin ordered, hold metformin while inpatient * In regards to history of hypothyroidism continue Synthroid follow-up on TSH within normal limits * Regards to history of depression continue patient on Zoloft * Post status is full code
[2023-06-19 16:46] LABS: Glucose,Whole Blood 151 mg/dL (70-110)
[2023-06-19 16:48] LABS: Glucose,CSF 107 mg/dL (40-70); Total Protein,CSF 87 mg/dL (12-60)
[2023-06-19 17:48] LABS: Appearance,CSF Clear; CSF Tube Number 4; CSF Tube Volume 1.8; Nucleated Cells, CSF 0 u/L (0-5); Red Blood Cell,CSF 6 u/L (0-10)
--- NOTE | 2023-06-19 18:31 | P.PN ---
Subjective Progress Note Date: 06/19/23 Patient was seen for a follow-up. Patient's and son were present today. Patient is doing much better. He walked good, although feels tired. Denies any headache. Patient's family believes that he is about 95% back to normal. He still is slightly confused, as he did not remember where his son lives although he knows it very well otherwise. No other seizures reported. Objective - Vital Signs Vital signs: Vital Signs Temp 98.4 F 06/19/23 07:49 Pulse 66 06/19/23 07:49 Resp 19 06/19/23 07:49 BP 135/67 06/19/23 07:49 Pulse Ox 98 06/19/23 07:49 FiO2 Intake & Output 06/18/23 06/19/23 06/19/23 18:59 06:59 18:59 Intake Total 340 Balance 340 Weight 70.307 kg Intake: Intake, IV Titration 100 Amount Acyclovir Sodium 700 mg 100 In Sodium Chloride 0.9% 100 ml @ 100 mls/hr IVPB Q12HR [facility] Rx#:[id number] Oral 240 Other: Voiding Method Urinal Urinal # Voids 1 2 - Exam Patient's mentation is much improved. Rest of the examination is unchanged. Tongue laceration improving. - Labs CBC & Chem 7: 06/19/23 07:02 06/19/23 07:02 Labs: Abnormal Lab Results - Last 24 Hours (Table) 06/18/23 06/18/23 06/19/23 Range/Units 16:31 21:30 05:59 Neutrophils # (1.3-7.7) k/uL Lymphocytes # (1.0-4.8) k/uL Sodium (137-145) mmol/L BUN (9-20) mg/dL Creatinine (0.66-1.25) mg/dL Glucose (74-99) mg/dL POC Glucose (mg/dL) 123 H 120 H (70-110) mg/dL U Benzodiazepines Scrn Detected H (NotDetected) U Marijuana (THC) Screen Detected H (NotDetected) 06/19/23 06/19/23 06/19/23 Range/Units 07:02 07:02 11:41 Neutrophils # 8.1 H (1.3-7.7) k/uL Lymphocytes # 0.8 L (1.0-4.8) k/uL Sodium 136 L (137-145) mmol/L BUN 34 H (9-20) mg/dL Creatinine 1.75 H (0.66-1.25) mg/dL Glucose 124 H (74-99) mg/dL POC Glucose (mg/dL) 164 H (70-110) mg/dL U Benzodiazepines Scrn (NotDetected) U Marijuana (THC) Screen (NotDetected) Assessment and Plan Assessment: * New onset grand mal seizure 2 (prior to arrival to the ER, and once in the ER), unclear etiology. No obvious provoking factor identified. Patient does not take any medications that could provoke seizure. Patient does have prescription of Xanax 0.25 mg, but he takes it no more than twice a month. No evidence of benzodiazepine withdrawal. Rule out encephalitis. * Hypertension * Diabetes * Marijuana use Plan: * Patient has presented with new onset seizure of unclear etiology. Although the oral temperature recorded was normal, but when checked axillary, was 100.0. Need to rule out encephalitis. * Patient will be started on Keppra 1000 mg stat loading dose, followed by Keppra 750 mg IV twice a day. * Stat EEG * Stat MRI of the brain with and without contrast. * We will perform lumbar puncture to rule out encephalitis. * We will empirically start acyclovir 10 mg/kg every 8 hours, (to be adjusted for patient's renal functions as per pharmacist). * Urine drug screen positive for benzodiazepine and marijuana. * Patient informed of [place] state law of no driving unless seizure free for 6 months, climbing ladders, operating dangerous machinery or unsupervised swimming. * Discussed with patient's family in detail.
--- NOTE | 2023-06-19 18:37 | P.PCN ---
Date of Procedure: 06/19/23 Preoperative Diagnosis: Rule out encephalitis Postoperative Diagnosis: Rule out encephalitis Procedure(s) Performed: Lumbar puncture Anesthesia: local Surgeon: Maddie Aguilar Estimated Blood Loss (ml): 0 Condition: stable Disposition: floor Indications for Procedure: Rule out encephalitis/meningitis Description of Procedure: Informed consent was obtained from patient and his . Risks and benefits of the procedure were informed. Procedure was performed under strict aseptic techniques. Patient was placed on his right lateral position. Low-back region was sterilized with Betadine, and then anesthetized with 1% lidocaine. A 21- gauge, spinal needle inserted at L4-L5 lumbar space. Patient's muscles were very tense, and lot of resistance. I then had patient sit on the side of the bed, and then attempted lumbar puncture at L3-L4 lumbar space. After some difficulty, I was able to enter subarachnoid space. Spinal fluid was slightly traumatic, but then cleared up in the second third and fourth tubes. About 8 mL of spinal fluid was collected. Stylet was reinserted, and the spinal needle withdrawn. Band-Aid applied. Patient was recommended to lay flat for half an hour. Patient tolerated the procedure well. Spinal fluid was sent for analysis.
[2023-06-19] MEDS: ATORVASTATIN 40 MG TAB PO SCH (20:08)
[2023-06-19 21:10] LABS: Glucose,Whole Blood 140 mg/dL (70-110)
[2023-06-20 05:57] LABS: Glucose,Whole Blood 138 mg/dL (70-110)
[2023-06-20] MEDS: INSULIN ASPART (NovoLOG) 100 UNIT/ML VIAL SQ SCH ×4 (06:09→21:30)
[2023-06-20] MEDS: FENOFIBRATE 54 MG TAB PO SCH (09:41)
[2023-06-20] MEDS: ISOSORBIDE MONONITRATE ER 30 MG TAB.ER.24H PO SCH (09:41)
[2023-06-20] MEDS: VALSARTAN 160 MG TAB PO SCH (09:41)
[2023-06-20] MEDS: SERTRALINE 100 MG TAB PO SCH (09:41)
[2023-06-20] MEDS: amLODIPine 10 MG TAB PO SCH (09:41)
[2023-06-20] MEDS: PANTOPRAZOLE 40 MG TABLET PO SCH (09:41)
[2023-06-20] MEDS: LEVOTHYROXINE 125 MCG TAB PO SCH (09:42)
[2023-06-20] MEDS: ACYCLOVIR SODIUM 700 MG in SODIUM CHLORIDE 0.9% 100 ML IVPB SCH ×2 (09:42→21:25)
[2023-06-20] MEDS: levETIRAcetam IV 500 MG/5 ML VIAL IVP SCH (09:42)
[2023-06-20] MEDS: LORazepam 2 MG/ML INJ IV PRN (10:07)
[2023-06-20 11:14] LABS: Glucose,Whole Blood 218 mg/dL (70-110)
--- NOTE | 2023-06-20 11:58 | MR ---
EXAMINATION TYPE: MR brain wo/w con DATE OF EXAM: 06/20/2023 COMPARISON: CT brain 06/18/2023 HISTORY: New onset seizures TECHNIQUE: Multiplanar, multisequence images of the brain and brainstem is performed without and with IV contras t, utilizing 7 ml mL intravenous Gadavist . FINDINGS: Diffusion weighted images demonstrate no evidence of a recent infarct or other diffusion ab normality. Moderate generalized degenerative change. There are numerous areas of abnormal signal throughout the white matter bilaterally compatible with remote white matter microvascular ischemia. Midline structures demonstrate normal morphology. The craniocervical junction appears within normal limits. Post contrast images demonstrate no abnormal enhancement. The dural venous sinuses appear pa tent. Changes of chronic sinusitis are noted. Orbits are symmetric. There is metallic artifact overlying th e left facial structures. Cerebellum alignment and position in the level the foramen magnum. Partiall y empty sella turcica. Intracranial atherosclerotic changes seen most marked involving the cavernous segment of bilateral ICA. Area of abnormal signal involving the bilateral basal ganglia most availabl e remote linear infarct. IMPRESSION: 1. No evidence of acute ischemia or enhancing mass. 2. Degenerative and remote ischemic changes 3. Moderate chronic sinusitis.
--- NOTE | 2023-06-20 13:39 | P.PN ---
Subjective Progress Note Date: 06/20/23 * 83-year-old gentleman with past medical history significant for diabetes mellitus, presented to the emergency department with new onset seizure * Patient was in usual state of health when he was noted to have abnormal jerky movement of his body earlier today. Patient was brought to the emergency if we added another episode of seizure. Patient does not have any previous history of seizure * CT head obtained in ER showed remote left basal ganglion lacunar injury. No acute intracranial process was noted * Workup initiated in ER included a CBC which was essentially normal except for platelet count of 132. Serum chemistry showed sodium of 138 potassium of 4.2 BUN of 40 1.93 Glucose of 218 * Consultation obtained from neurology 06/19/2023 : Patient seen and evaluated bedside. Patient accompanied with and son. At this time patient is alert and oriented 3. Mentation has improved significantly. Appreciate neurology input. MRI brain pending 06/20/2023 : Patient seen and evaluated bedside. Mentation has improved patient is alert and oriented 4. Patient is status post lumbar puncture. MRI brain completed negative for acute CVA Objective - Vital Signs Vital signs: Vital Signs Temp 98.4 F 06/20/23 07:18 Pulse 70 06/20/23 07:18 Resp 16 06/20/23 07:18 BP 143/65 06/20/23 07:18 Pulse Ox 96 06/20/23 07:18 FiO2 Intake & Output 06/19/23 06/20/23 06/20/23 18:59 06:59 18:59 Intake Total 450 Balance 450 Intake: Intake, IV Titration 100 Amount Acyclovir Sodium 700 mg 100 In Sodium Chloride 0.9% 100 ml @ 100 mls/hr IVPB Q12HR [facility] Rx#:[id number] Oral 350 Other: Voiding Method Urinal Toilet # Voids 2 2 - Exam PHYSICAL EXAMINATION: GENERAL: The patient is alert and oriented x3, not in any acute distress. Well developed, well nourished. HEENT: Pupils are round and equally reacting to light. EOMI. No scleral icterus. No conjunctival pallor. Normocephalic, atraumatic. No pharyngeal erythema. No thyromegaly. CARDIOVASCULAR: S1 and S2 present. No murmurs, rubs, or gallops. PULMONARY: Chest is clear to auscultation, no wheezing or crackles. ABDOMEN: Soft, nontender, nondistended, normoactive bowel sounds. No palpable organomegaly. MUSCULOSKELETAL: No joint swelling or deformity. EXTREMITIES: No cyanosis, clubbing, or pedal edema. NEUROLOGICAL: Gross neurological examination did not reveal any focal deficits. SKIN: No rashes. - Labs CBC & Chem 7: 06/19/23 07:02 06/19/23 07:02 Labs: Abnormal Lab Results - Last 24 Hours (Table) 06/19/23 06/19/23 06/19/23 Range/Units 15:00 16:44 21:08 POC Glucose (mg/dL) 151 H 140 H (70-110) mg/dL CSF Glucose 107 H (40-70) mg/dL CSF Total Protein 87 H (12-60) mg/dL 06/20/23 06/20/23 Range/Units 05:56 11:13 POC Glucose (mg/dL) 138 H 218 H (70-110) mg/dL CSF Glucose (40-70) mg/dL CSF Total Protein (12-60) mg/dL Assessment and Plan Assessment: Assessment and plan * New onset seizure * Diabetes mellitus type 2 * Hypertension * Dyslipidemia * History of depression * Consult obtained from neurology, CT head negative for acute intracranial process. Continue every 4 hours neuro check, MRI brain negative * As needed Ativan ordered for seizure, MRI brain negative, EEG completed * In regards to seizure continue patient on IV Keppra * In regards to diabetes mellitus continue Accu-Cheks, correctional insulin ordered, hold metformin while inpatient * In regards to history of hypothyroidism continue Synthroid follow-up on TSH within normal limits * Regards to history of depression continue patient on Zoloft * Post status is full code
[2023-06-20 16:33] LABS: Glucose,Whole Blood 237 mg/dL (70-110)
[2023-06-20] MEDS: levETIRAcetam 500 MG TAB PO SCH (21:24)
[2023-06-20 21:25] LABS: Glucose,Whole Blood 162 mg/dL (70-110)
[2023-06-20] MEDS: ATORVASTATIN 40 MG TAB PO SCH (21:25)
--- NOTE | 2023-06-20 23:17 | EEG ---
DATE OF SERVICE: 06/20/2023 ELECTROENCEPHALOGRAM REPORT PREAMBLE: This is an of 83-year-old male with new onset seizure. EEG FINDINGS: This is a 21-channel digital EEG recorded with video component, utilizing 10/20 international system with referential and bipolar montages. Background consists of well developed, well regulated moderate voltage activity in 8 hertz alpha. Background is posterior dominant and reactive to eye opening and closing. Photic driving response was not seen. Drowsiness was seen with appearance of bilaterally symmetric theta frequency rhythm. Deeper stages of sleep were not seen. There were two brief episodes of generalized spike type waves, but appeared artifactual because there was probably some movement with it. No focal or generalized epileptiform activity was seen. IMPRESSION: This is a normal awake and drowsy EEG. No focal, lateralized or epileptiform activity was seen. MMODL / IJN: [id number] / ISABEL
[2023-06-21 01:26] VITALS: PULSE 77
[2023-06-21 06:00] LABS: Glucose,Whole Blood 147 mg/dL (70-110)
[2023-06-21 07:11] VITALS: BP 139/78; RESP 16; TEMP 98.1
[2023-06-21] MEDS: ISOSORBIDE MONONITRATE ER 30 MG TAB.ER.24H PO SCH (08:33)
[2023-06-21] MEDS: amLODIPine 10 MG TAB PO SCH (08:33)
[2023-06-21] MEDS: PANTOPRAZOLE 40 MG TABLET PO SCH (08:33)
[2023-06-21] MEDS: SERTRALINE 100 MG TAB PO SCH (08:33)
[2023-06-21] MEDS: LEVOTHYROXINE 125 MCG TAB PO SCH (08:33)
[2023-06-21] MEDS: levETIRAcetam 500 MG TAB PO SCH (08:33)
[2023-06-21] MEDS: INSULIN ASPART (NovoLOG) 100 UNIT/ML VIAL SQ SCH ×2 (08:33→12:47)
[2023-06-21] MEDS: VALSARTAN 160 MG TAB PO SCH (08:34)
[2023-06-21] MEDS: FENOFIBRATE 54 MG TAB PO SCH (08:34)
[2023-06-21] MEDS: ACYCLOVIR SODIUM 700 MG in SODIUM CHLORIDE 0.9% 100 ML IVPB SCH (08:34)
--- NOTE | 2023-06-21 09:38 | P.PN ---
Subjective Progress Note Date: 06/20/23 Patient was seen for a follow-up. Patient's and the other son were present today. Patient is doing much better. He walked good, although feels tired. Denies any headache. Patient feels that he is back to baseline. No seizures reported. Objective - Vital Signs Vital signs: Vital Signs Temp 98.0 F 06/20/23 14:00 Pulse 89 06/20/23 14:00 Resp 16 06/20/23 14:00 BP 108/58 06/20/23 14:00 Pulse Ox 93 L 06/20/23 14:00 FiO2 Intake & Output 06/19/23 06/20/23 06/20/23 18:59 06:59 18:59 Intake Total 450 Balance 450 Intake: Intake, IV Titration 100 Amount Acyclovir Sodium 700 mg 100 In Sodium Chloride 0.9% 100 ml @ 100 mls/hr IVPB Q12HR WANG Rx#:[id number] Oral 350 Other: Voiding Method Urinal Toilet # Voids 2 2 - Exam Patient's mentation is much improved. Rest of the examination is unchanged. Tongue laceration improving. - Labs CBC & Chem 7: 06/19/23 07:02 06/19/23 07:02 Labs: Abnormal Lab Results - Last 24 Hours (Table) 06/19/23 06/19/23 06/19/23 Range/Units 15:00 16:44 21:08 POC Glucose (mg/dL) 151 H 140 H (70-110) mg/dL CSF Glucose 107 H (40-70) mg/dL CSF Total Protein 87 H (12-60) mg/dL 06/20/23 06/20/23 Range/Units 05:56 11:13 POC Glucose (mg/dL) 138 H 218 H (70-110) mg/dL CSF Glucose (40-70) mg/dL CSF Total Protein (12-60) mg/dL Microbiology - Last 24 Hours (Table) 06/19/23 15:00 CSF Gram Stain - Preliminary Cerebral Spinal Fluid Assessment and Plan Assessment: * New onset grand mal seizure 2 (prior to arrival to the ER, and once in the ER), unclear etiology. No obvious provoking factor identified. Patient does not take any medications that could provoke seizure. Patient does have prescription of Xanax 0.25 mg, but he takes it no more than twice a month. No evidence of benzodiazepine withdrawal. Rule out encephalitis. * Hypertension * Diabetes * Marijuana use Plan: * Patient has presented with new onset seizure of unclear etiology. No obvious provoking factor identified. All workup has been negative as mentioned below. If the CSF HSV PCR comes back negative, acyclovir will be discontinued and p liv can be discharged home on Keppra 750 mg twice a day. Patient will need follow up with neurologist. I would recommend prolonged EEG as an outpatient. * Patient will be started on Keppra 1000 mg stat loading dose, followed by Keppra 750 mg IV twice a day. * EEG was normal awake and drowsy EEG. No focal, lateralized or epileptiform activity was seen. * MRI of the brain with and without contrast revealed no evidence of acute ischemia or enhancing mass. Degenerative and remote ischemic changes. Moderate chronic sinusitis. I personally reviewed MRI agree with the findings. * CSF showed WBC 0, RBC 6. CSF glucose 107, CSF protein 87 (12-60). Viral cultures pending. * Continue acyclovir 10 mg/kg every 8 hours, (to be adjusted for patient's renal functions as per pharmacist), until HSV PCR comes back negative. * Urine drug screen positive for benzodiazepine and marijuana. * Patient informed of [place] state law of no driving unless seizure free for 6 months, climbing ladders, operating dangerous machinery or unsupervised swimming. * Discussed with patient's family in detail.
[2023-06-21 10:55] LABS: HCT 40.8 % (39.6-50.0); HGB 13.5 d/dL (13.0-17.0); MCH 28.7 pg (27.0-32.0); MCHC 33.1 d/dL (32.0-37.0); MCV 86.8 FL (80.0-97.0); Mean Platelet Volume 11.2 FL (9.5-12.2); NRBC Per 100 WBC 0 X 10*3/uL (0.00-0.01); Platelet Count 182 X 10*3/uL (140-440); WBC 7.89 X 10*3/uL (4.50-10.00)
[2023-06-21 11:09] LABS: BUN/Creat Ratio 15.15 Ratio (12.00-20.00); Blood Urea Nitrogen 30.3 mg/dL (9.0-27.0); Calcium 9.6 mg/dL (8.7-10.3); Carbon Dioxide 24.2 mmol/L (21.6-31.8); Chloride 105 mmol/L (96-109); Glucose 156 mg/dL (70-110); Potassium 3.8 mmol/L (3.5-5.5); Sodium 141 mmol/L (135-145)
[2023-06-21 11:26] LABS: Glucose,Whole Blood 158 mg/dL (70-110)
--- NOTE | 2023-06-21 12:20 | P.DS ---
Providers Date of admission: 06/18/23 12:17 Expected date of discharge: 06/21/23 Attending physician: Rao Osorio Consults: 06/18/23 10:36 Consult Physician Routine Consulting Provider: Maddie Aguilar Consult Reason/Comments: seziure new onset Do you want consulting provider notified?: Yes Primary care physician: Kehinde Clark MD Hospital Course: * 83-year-old gentleman with past medical history significant for diabetes mellitus, presented to the emergency department with new onset seizure * Patient was in usual state of health when he was noted to have abnormal jerky movement of his body earlier today. Patient was brought to the emergency if we added another episode of seizure. Patient does not have any previous history of seizure * CT head obtained in ER showed remote left basal ganglion lacunar injury. No acute intracranial process was noted * Workup initiated in ER included a CBC which was essentially normal except for platelet count of 132. Serum chemistry showed sodium of 138 potassium of 4.2 BUN of 40 1.93 Glucose of 218 patient seen and evaluated bedside. Patient seen by neurology and cleared for discharge patient seen and evaluated bedside patient seen and evaluated bedside * Consultation obtained from neurology * 06/19/2023 : Patient seen and evaluated bedside. Patient accompanied with and son. At this time patient is alert and oriented 3. Mentation has improved significantly. Appreciate neurology input. MRI brain pending * 06/20/2023 : Patient seen and evaluated bedside. Mentation has improved patient is alert and oriented 4. Patient is status post lumbar puncture. MRI brain completed negative for acute CVA * 06/21/2023 Patient seen and evaluated at bedside. Patient seen by neurology. Gait for discharge. Instructions provided. Discharge on Keppra seizure restrictions provided, EEG completed reviewed PHYSICAL EXAMINATION: GENERAL: The patient is alert and oriented x3, not in any acute distress. Well developed, well nourished. HEENT: Pupils are round and equally reacting to light. EOMI. No scleral icterus. No conjunctival pallor. Normocephalic, atraumatic. No pharyngeal erythema. No thyromegaly. CARDIOVASCULAR: S1 and S2 present. No murmurs, rubs, or gallops. PULMONARY: Chest is clear to auscultation, no wheezing or crackles. ABDOMEN: Soft, nontender, nondistended, normoactive bowel sounds. No palpable organomegaly. MUSCULOSKELETAL: No joint swelling or deformity. EXTREMITIES: No cyanosis, clubbing, or pedal edema. NEUROLOGICAL: Gross neurological examination did not reveal any focal deficits. SKIN: No rashes. Assessment and plan * New onset seizure * Diabetes mellitus type 2 * Hypertension * Dyslipidemia * History of depression * Consult obtained from neurology, CT head negative for acute intracranial process., MRI brain negative * As needed Ativan ordered for seizure, MRI brain negative, EEG completed * In regards to seizure . Transition from IV Keppra to oral upon discharge. CSF cultures negative to date * In regards to diabetes mellitus continue Accu-Cheks, continue metformin upon discharge * In regards to history of hypothyroidism continue Synthroid follow-up on TSH within normal limits * Regards to history of depression continue patient on Zoloft Patient Condition at Discharge: Stable Plan - Discharge Summary Discharge Rx Participant: Yes New Discharge Prescriptions: New levETIRAcetam [Keppra] 750 mg PO Q12HR 30 Days #180 tab Continue Sertraline [Zoloft] 200 mg PO DAILY metFORMIN HCL [Glucophage] 500 mg PO DAILY Pantoprazole Sodium [Protonix] 20 mg PO DAILY Isosorbide Mononitrate ER [Imdur] 30 mg PO DAILY Fenofibrate Nanocrystallized [Tricor] 145 mg PO DAILY ALPRAZolam [Xanax] 0.25 mg PO DAILY PRN PRN Reason: Anxiety Levothyroxine Sodium [Synthroid] 125 mcg PO DAILY Atorvastatin Calcium [Lipitor] 40 mg PO HS Amlodipine Besylate/Valsartan [Amlodipine-Valsartan 10-320 mg] 1 tab PO DAILY Chlorthalidone 12.5 mg PO DAILY Discharge Medication List ALPRAZolam [Xanax] 0.25 mg PO DAILY PRN 06/18/23 [History] Amlodipine Besylate/Valsartan [Amlodipine-Valsartan 10-320 mg] 1 tab PO DAILY 06/18/23 [History] Atorvastatin Calcium [Lipitor] 40 mg PO HS 06/18/23 [History] Chlorthalidone 12.5 mg PO DAILY 06/18/23 [History] Fenofibrate Nanocrystallized [Tricor] 145 mg PO DAILY 06/18/23 [History] Isosorbide Mononitrate ER [Imdur] 30 mg PO DAILY 06/18/23 [History] Levothyroxine Sodium [Synthroid] 125 mcg PO DAILY 06/18/23 [History] Pantoprazole Sodium [Protonix] 20 mg PO DAILY 06/18/23 [History] Sertraline [Zoloft] 200 mg PO DAILY 06/18/23 [History] metFORMIN HCL [Glucophage] 500 mg PO DAILY 06/18/23 [History] levETIRAcetam [Keppra] 750 mg PO Q12HR 30 Days #180 tab 06/21/23 [Rx] Follow up Appointment(s)/Referral(s): Nonstaff,Physician [REFERRING] - 1-2 days Activity/Diet/Wound Care/Special Instructions: * Patient informed of [place] state law of no driving unless seizure free for 6 months, climbing ladders, operating dangerous machinery or unsupervised swimming. * Discharge Disposition: HOME SELF-CARE
[2023-06-21] MEDS ORDERED: levETIRAcetam 250 MG TAB PO SCH (21:00)
--- NOTE | 2023-06-22 13:39 | CDI ---
Documentation Clarification Form Date: 06/22/23 From: Natividad Bourne Admit Date: 06/18/2023 12:17:00 PM Patient Name: Umer Matt Visit Number: [id number] Discharge Date: 06/21/2023 01:05:00 PM ATTENTION: The Clinical Documentation Specialists (CDI) and [facility] Coding Staff appreciate your assistance in clarifying documentation. Please respond to the clarification below the line at the bottom and electronically sign. The CDI & [facility] Coding staff will review the response and follow-up if needed. Please note: Queries are made part of the Legal Health Record. If you have any questions, please contact the author of this message via ITS. Dr. Joya Christie, Your patient has an abnormal Creatinine lab values: (06/18-06/21) : 1.93, 1.75, 2.0. Please clarify if there is an additional diagnosis and/or clinical significance related to this value. History/Risk Factors: Diabetes, HTN, HLD, hypothyroidism, depression, cannabis use Clinical indicators: Elevated Creatinine levels Treatment: IV fluids, serial Cr levels Is there an additional diagnosis and/or clinical significance related to the above lab result/information? [ ] Acute kidney injury [ y ] No additional diagnosis/Not clinically significant [ ] Other, please specify [ ] Unable to determine MTDD
== END 2023-06-21 13:05 | disposition home or self-care (01) | DRG 101 ==
LOC: EC 08:46 → 4SSUR 12:17
PROVIDERS: ADMIT Hospitalist; ATTEND Hospitalist
PROC: 009U3ZX Drainage of Spinal Canal, Percutaneous Approach, Diagnostic (ICD-10-PCS; principal; 2023-06-19)
DX: G40.409 Other generalized epilepsy and epileptic syndromes, not intractable, without status epilepticus (principal); E11.9 Type 2 diabetes mellitus without complications; I10 Essential (primary) hypertension; E78.5 Hyperlipidemia, unspecified; E03.9 Hypothyroidism, unspecified; F32.A Depression, unspecified; F12.90 Cannabis use, unspecified, uncomplicated; Z79.84 Long term (current) use of oral hypoglycemic drugs; Z79.890 Hormone replacement therapy; Z79.899 Other long term (current) drug therapy; Z87.891 Personal history of nicotine dependence; Z86.73 Personal history of transient ischemic attack (TIA), and cerebral infarction without residual deficits
CPT/HCPCS: 36415; 70450; 70553; 71046; 80048; 80053; 80306; 82140; 82945; 84145; 84157; 84443; 84484; 85025; 85027; 85610; 85730; 86140; 87070; 87205; 87252; 87496; 87498; 87529; 87798; 89050; 93005; 94760; 95816; 96361; 96374; 96375; 96376; 99285